=== PATIENT | female | born 1985 | race Two or more races ===

== ENCOUNTER 2017-03-30 02:07 | Emergency (ER) | payer BC ==
[2017-03-30] MEDS ORDERED: LIDOCAINE 1% INJ-PF (10 MG/ML) 30 ML SDV INJ ONE (02:38)
[2017-03-30] MEDS ORDERED: HYDROCODONE/ACETAMINOPHEN 5-325 MG TABLET PO ONE (02:38)
[2017-03-30] MEDS ORDERED: AMOXICILLIN TR/POT CLAVULANATE 500-125 MG TAB PO ONE (02:38)
[2017-03-30] MEDS ORDERED: DIPH/PERTUSS(ACELL)/TETANUS VAC/PF 0.5 ML SYR (>=10YO) IM ONE (02:39)
--- NOTE | 2017-03-30 02:43 | ER Document Report ---
ED General - General Chief Complaint: Dog bite to R eyebrow Stated Complaint: FACIAL INJURY Time Seen by Provider: 03/30/17 02:23 Mode of Arrival: Ambulatory Information source: Patient Notes: 31 yr old female presents with concerns for dog bite of the right eye brow by her dog just prior to arrival. Dog was sleeping and patient movved him out of the bed and he bit her. pt denies any other concerns TRAVEL OUTSIDE OF THE [place] IN LAST 30 DAYS: No - HPI Onset: Just prior to arrival Onset/Duration: Sudden Quality of pain: Achy Severity: Mild Pain Level: 1 Associated symptoms: Headache Exacerbated by: Denies Relieved by: Denies Similar symptoms previously: No Recently seen / treated by doctor: No - Related Data Allergies/Adverse Reactions: rizatriptan benzoate [From Maxalt] Allergy (Unknown, Verified 05/04/13 15:11) Past Medical History - Social History Smoking Status: Never Smoker Cigarette use (# per day): No Chew tobacco use (# tins/day): No Smoking Education Provided: No Family History: Reviewed & Not Pertinent - Past Medical History Cardiac Medical History: Denies: Hx Coronary Artery Disease, Hx Heart Attack, Hx Hypertension Pulmonary Medical History: Denies: Hx Asthma, Hx Bronchitis, Hx COPD, Hx Pneumonia Neurological Medical History: Denies: Hx Cerebrovascular Accident Renal/ Medical History: Denies: Hx Peritoneal Dialysis Musculoskeltal Medical History: Denies Hx Arthritis - Immunizations Hx Diphtheria, Pertussis, Tetanus Vaccination: Yes Review of Systems - Review of Systems Notes: REVIEW OF SYSTEMS: CONSTITUTIONAL : Denies fever, chills, or sweats. Denies recent illness. EENT: Denies eye, ear, throat, or mouth pain or symptoms. Denies nasal or sinus congestion or discharge. Denies throat, tongue, or mouth swelling or difficulty swallowing. CARDIOVASCULAR: Denies chest pain. Denies palpitations or racing or irregular heart beat. Denies ankle edema. RESPIRATORY: Denies cough, cold, or chest congestion. Denies shortness of breath, difficulty breathing, or wheezing. GASTROINTESTINAL: Denies abdominal pain or distention. Denies nausea, vomiting , or diarrhea. Denies blood in vomitus, stools, or per rectum. Denies black, tarry stools. Denies constipation. GENITOURINARY: Denies difficulty urinating, painful urination, burning, frequency, blood in urine, or discharge. FEMALE GENITOURINARY: Denies vaginal bleeding, heavy or abnormal periods, irregular periods. Denies vaginal discharge or odor. MUSCULOSKELETAL: Denies back or neck pain or stiffness. Denies joint pain or swelling. SKIN: dog bite ot face HEMATOLOGIC : Denies easy bruising or bleeding. LYMPHATIC: Denies swollen, enlarged glands. NEUROLOGICAL: admits ot head ache PSYCHIATRIC: Denies anxiety or stress. Denies depression, suicidal ideation, or homicidal ideation. ALL OTHER SYSTEMS REVIEWED AND NEGATIVE. PHYSICAL EXAMINATION: GENERAL: Well-appearing, well-nourished and in no acute distress. HEAD: Atraumatic, normocephalic. EYES: Pupils equal round and reactive to light, extraocular movements intact, conjunctiva are normal. ENT: Nares patent, oropharynx clear without exudates. Moist mucous membranes. NECK: Normal range of motion, supple without lymphadenopathy LUNGS: Breath sounds clear to auscultation bilaterally and equal. No wheezes rales or rhonchi. HEART: Regular rate and rhythm without murmurs ABDOMEN: Soft, nontender, nondistended abdomen. No guarding, no rebound. No masses appreciated. Female : deferred Musculoskeletal: Normal range of motion, no pitting or edema. No cyanosis. NEUROLOGICAL: Cranial nerves grossly intact. Normal speech, normal gait. Normal sensory, motor exams PSYCH: Normal mood, normal affect. SKIN: complete loss of skin of the mid eyebrow in a jagged area maesuring 3x3cm Dictation was performed using [employer] voice recognition software Physical Exam - Vital signs Vitals: Temp Pulse Resp BP Pulse Ox 98.0 F 70 16 144/86 H 99 03/30/17 02:16 03/30/17 02:16 03/30/17 02:16 03/30/17 02:16 03/30/17 02:16 Course - Re-evaluation Re-evalutation: 03/30/17 02:42 unfortunately the area was bitten off completely. I explained ot the patient that with the loss of the skin her eyebrow will probably never grow back right . Area will be cleansed, i will close it loosely to assist with healing. pt will be given tetanus and antibiotic 03/30/17 03:41 3 sutures were placed closely approximating the wounds, there is a gap noted family has been made aware of this Patient instructed to return immediately if there is any signs of infection or any other concerns she will be given plastic surgery follow-up After performing a Medical Screening Examination, I estimate there is LOW risk for OPEN FRACTURE, COMPARTMENT SYNDROME, TENDON RUPTURE, ACUTE NEUROVASCULAR INJURY, or RETAINED FOREIGN BODY, thus I consider the discharge disposition reasonable. Also, there is no evidence or peritonitis, sepsis, or toxicity. I have reevaluated this patient multiple times and no significant life threatening changes are noted. The patient and I have discussed the diagnosis and risks, and we agree with discharging home with close follow-up with the understanding that symptoms and presentations can change. We also discussed returning to the Emergency Department immediately if new or worsening symptoms occur. We have discussed the symptoms which are most concerning (e.g., changing or worsening pain, fever, numbness, weakness, cool or painful digits) that necessitate immediate return. - Vital Signs Vital signs: Temp Pulse Resp BP Pulse Ox 98.0 F 70 16 144/86 H 99 03/30/17 02:16 03/30/17 02:16 03/30/17 02:16 03/30/17 02:16 03/30/17 02:16 Procedures - Laceration/Wound Repair Right Upper Face Time completed: 03:43 Wound length (cm): 3 Wound's Depth, Shape: Superficial Laceration pre-procedure: Sterile PPE donned, Sterile drapes applied, Shur- Clens applied Anesthetic type: 1% Lidocaine Volume Anesthetic (mLs): 5 Wound explored: Contaminated, Foreign body removed Irrigated w/ Saline (mLs): 500 Wound Debrided: Extensive Wound Repaired With: Sutures Suture Size/Type: 5:0, Ethilon Number of Sutures: 3 Post-procedure NV exam normal: Yes Complications: No Discharge - Discharge Clinical Impression: Dog bite Qualifiers: Encounter type: initial encounter Qualified Code(s): W54.0XXA - Bitten by dog, initial encounter Condition: Stable Disposition: HOME, SELF-CARE Instructions: Animal Bites ([facility]) Prescriptions: Amox Tr/Potassium Clavulanate [Augmentin 875-125 Tablet] 1 tab PO BID 10 Days Forms: Return to Work Referrals: PABLO BEGUM MD [ACTIVE STAFF] - Follow up tomorrow
[2017-03-30 04:00] VITALS: BP 140/90
== END 2017-03-30 03:58 | disposition home or self-care (01) ==
LOC: ER 02:07
PROC: 0HQ1XZZ Repair Face Skin, External Approach (ICD-10-PCS; principal; 2017-03-30)
DX: S01.151A Open bite of right eyelid and periocular area, initial encounter (principal); W54.0XXA Bitten by dog, initial encounter; Y93.89 Activity, other specified; Y92.003 Bedroom of unspecified non-institutional (private) residence as the place of occurrence of the external cause; Z88.8 Allergy status to other drugs, medicaments and biological substances; R51 Headache; Z23 Encounter for immunization
CPT/HCPCS: 90471; 90715; 99283

== ENCOUNTER 2018-02-25 10:17 | Outpatient (CLI) | payer BC, MEDICAID ==
[2018-02-25 10:48] LABS: APPEARANCE,URINE CLEAR; BILIRUBIN,URINE NEGATIVE (NEGATIVE); COLOR,URINE STRAW; GLUCOSE, URINE NEGATIVE (NEGATIVE); KETONES,URINE NEGATIVE (NEGATIVE); LEUKOCYTE ESTERASE,URINE NEGATIVE (NEGATIVE); NITRITE,URINE NEGATIVE (NEGATIVE); PROTEIN,URINE NEGATIVE (NEGATIVE); URINE SPECIFIC GRAVITY 1.002; UROBILINOGEN,URINE NEGATIVE mg/dL (<2.0)
[2018-02-25 11:06] LABS: URINE AMPHETAMINES SCREEN NEGATIVE; URINE BENZODIAZEPINES SCREEN NEGATIVE; URINE COCAINE SCREEN NEGATIVE; URINE MARIJUANA (THC) SCREEN NEGATIVE; URINE METHADONE SCREEN NEGATIVE; URINE PHENCYCLIDINE SCREEN NEGATIVE
[2018-02-25 11:14] LABS: URINE BARBITURATES SCREEN UNCONFIRMED POSITIVE
[2018-02-25] MEDS ORDERED: HYDROXYZINE PAMOATE 50 MG CAPSULE ONE (11:43)
[2018-02-25] MEDS ORDERED: HYDROXYZINE PAMOATE 50 MG CAPSULE PO ONE (11:50)
== END 2018-02-25 11:48 | disposition home or self-care (01) ==
LOC: LC 10:17
PROVIDERS: ATTEND Obstetrics & Gynecology
PROC: 4A1HXCZ Monitoring of Products of Conception, Cardiac Rate, External Approach (ICD-10-PCS; principal; 2018-02-25)
DX: Z34.92 Encounter for supervision of normal pregnancy, unspecified, second trimester (principal)
CPT/HCPCS: 80307; 81001

== ENCOUNTER 2018-04-19 16:32 | Outpatient (CLI) | payer BC, MEDICAID ==
[2018-04-19 17:56] LABS: APPEARANCE,URINE CLEAR; BILIRUBIN,URINE NEGATIVE (NEGATIVE); COLOR,URINE YELLOW; GLUCOSE, URINE NEGATIVE (NEGATIVE); KETONES,URINE 20 mg/dL (NEGATIVE); LEUKOCYTE ESTERASE,URINE NEGATIVE (NEGATIVE); NITRITE,URINE NEGATIVE (NEGATIVE); PROTEIN,URINE NEGATIVE (NEGATIVE); URINE SPECIFIC GRAVITY 1.012; UROBILINOGEN,URINE NEGATIVE mg/dL (<2.0)
[2018-04-19 18:06] LABS: URINE AMPHETAMINES SCREEN NEGATIVE; URINE BARBITURATES SCREEN NEGATIVE; URINE BENZODIAZEPINES SCREEN NEGATIVE; URINE COCAINE SCREEN NEGATIVE; URINE MARIJUANA (THC) SCREEN NEGATIVE; URINE METHADONE SCREEN NEGATIVE; URINE PHENCYCLIDINE SCREEN NEGATIVE
[2018-04-19 18:10] LABS: UR PRO/CREAT RATIO RESULT 0.2 mg/mg (0.0-0.2); URINE CREATININE 68.9 mg/dL (16-327); URINE PROTEIN 16.7 mg/dL (<12)
[2018-04-19 18:13] LABS: ABSOLUTE EOSINOPHILS # (AUTO) 0.1 10^3/uL (0.0-0.6); ABSOLUTE LYMPHOCYTES (AUTO) 2.2 10^3/uL (0.5-4.7); ABSOLUTE MONOCYTES (AUTO) 1.4 10^3/uL (0.1-1.4); ABSOLUTE NEUT (AUTO) 8.2 10^3/uL (1.7-8.2); BASOPHILS % (AUTO) 0.2 % (0-2); EOSINOPHILS % (AUTO) 0.7 % (0-6); HEMATOCRIT 34.6 % (36.0-47.0); HEMOGLOBIN 11.9 g/dL (12.0-15.5); LYMPHOCYTES % (AUTO) 18.2 % (13-45); MEAN CORPUSCULAR HEMOGLOBIN 31.2 pg (27.0-33.4); MEAN CORPUSCULAR HGB CONC 34.2 g/dL (32.0-36.0); MEAN CORPUSCULAR VOLUME 91 fl (80-97); PLATELET COUNT 198 10^3/uL (150-450); RED BLOOD COUNT 3.79 10^6/uL (3.72-5.28); RED CELL DISTRIBUTION WIDTH 13.2 % (11.5-14.0); SEGMENTED NEUTROPHILS % (AUTO) 68.9 % (42-78); TOTAL CELLS COUNTED % (AUTO) 100 %; WHITE BLOOD COUNT 11.9 10^3/uL (4.0-10.5)
[2018-04-19 18:30] LABS: ALANINE AMINOTRANSFERASE 20 U/L (9-52); ALBUMIN 3.2 g/dL (3.5-5.0); ALKALINE PHOSPHATASE 101 U/L (38-126); ANION GAP 11 (5-19); ASPARTATE AMINO TRANSFERASE 14 U/L (14-36); BILIRUBIN,DIRECT 0.1 mg/dL (0.0-0.4); BILIRUBIN,TOTAL 0.1 mg/dL (0.2-1.3); BLOOD UREA NITROGEN 5 mg/dL (7-20); CALCIUM 9.2 mg/dL (8.4-10.2); CARBON DIOXIDE 22 mmol/L (22-30); CHLORIDE 106 mmol/L (98-107); GLUCOSE 97 mg/dL (75-110); POTASSIUM 3.6 mmol/L (3.6-5.0); SODIUM 138.6 mmol/L (137-145); TOTAL PROTEIN 6.1 g/dL (6.3-8.2); URIC ACID 3.3 mg/dL (2.5-6.2)
== END 2018-04-19 19:06 | disposition home or self-care (01) ==
LOC: LC 16:32
PROVIDERS: ATTEND Obstetrics & Gynecology
PROC: 4A1HXCZ Monitoring of Products of Conception, Cardiac Rate, External Approach (ICD-10-PCS; principal; 2018-04-19)
DX: O13.3 Gestational [pregnancy-induced] hypertension without significant proteinuria, third trimester (principal); Z3A.34 34 weeks gestation of pregnancy
CPT/HCPCS: 36415; 59025; 80053; 80307; 81001; 82570; 83615; 84156; 84550; 85025

== ENCOUNTER 2018-04-20 11:26 | Emergency (ER) | payer BC, MEDICAID ==
--- NOTE | 2018-04-20 11:43 | ER Document Report ---
ED General - General Chief Complaint: Blood Pressure Problem Stated Complaint: DIFFICULTY BREATHING Time Seen by Provider: 04/20/18 11:34 Notes: This is a 32-year-old female patient was brought in by EMS from [place] for evaluation of dizziness. Patient states that she was seen by L&D last night. Was started on a new blood pressure medication for which she does not know the name of. States that she took it for the first time yesterday. Woke up this morning and felt very puffy. States that her lips and face were swollen. 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 Began to feel a little bit dizzy and began to feel panicky. Had some numbness and tingling of her hands and face. Pass out. Denies any chest pain. States that she felt some heaviness on her chest and some mild shortness of breath but no chest pain. TRAVEL OUTSIDE OF THE [place] IN LAST 30 DAYS: No - Related Data Allergies/Adverse Reactions: rizatriptan benzoate [From Bellabeat] Allergy (Unknown, Verified 04/19/18 16:58) lisinopril Allergy (Verified 04/19/18 16:58) Past Medical History - General Information source: Patient - Social History Smoking Status: Smoker,Current Status Unk Cigarette use (# per day): No Frequency of alcohol use: None Drug Abuse: None Lives with: Family Family History: Reviewed & Not Pertinent Patient has suicidal ideation: No Patient has homicidal ideation: No - Past Medical History Cardiac Medical History: Denies: Hx Coronary Artery Disease, Hx Heart Attack, Hx Hypertension Pulmonary Medical History: Denies: Hx Asthma, Hx Bronchitis, Hx COPD, Hx Pneumonia Neurological Medical History: Denies: Hx Cerebrovascular Accident Renal/ Medical History: Denies: Hx Peritoneal Dialysis Musculoskeletal Medical History: Denies Hx Arthritis - Immunizations Hx Diphtheria, Pertussis, Tetanus Vaccination: Yes Review of Systems - Review of Systems Constitutional: denies: Fever, Malaise, Weakness EENT: Mouth swelling, Other - Patient states that her face is swollen. denies: Double vision, Ear pain, Throat pain, Difficulty swallowing Cardiovascular: Palpitations, Dizziness, Lightheaded. denies: Chest pain, Heart racing, Edema Respiratory: Short of breath. denies: Cough, Hurts to breathe, Wheezing Gastrointestinal: denies: Abdominal pain, Diarrhea, Nausea, Vomiting Genitourinary: denies: Dysuria, Discharge, Flank pain, Hematuria Female Genitourinary: . denies: Vaginal discharge, Vaginal bleeding Musculoskeletal: denies: Back pain, Joint swelling, Muscle pain, Muscle stiffness, Neck pain, Leg swelling, Ankle swelling Skin: denies: Dryness, Lesions, Lumps, Rash Hematologic/Lymphatic: denies: Anemia, Blood clots, Easy bleeding, Easy bruising Neurological/Psychological: Numbness. denies: Confusion, Weakness Physical Exam - Vital signs Vitals: Temp Pulse Resp BP Pulse Ox 97.9 F 94 20 144/90 H 100 04/20/18 11:34 04/20/18 11:34 04/20/18 11:34 04/20/18 11:34 04/20/18 11:34 Interpretation: Normal - General General appearance: Appears well, Alert - HEENT Head: Normocephalic, Atraumatic Eyes: Normal Pupils: PERRL Nasal: Normal Mouth/Lips: Normal, Other - Although patient complains of swelling of the lips I find no significant findings consistent with angioedema. Mucous membranes: Normal Pharynx: Normal Neck: Normal - Respiratory Respiratory status: No respiratory distress Chest status: Nontender Breath sounds: Normal Chest palpation: Normal - Cardiovascular Rhythm: Regular Heart sounds: Normal auscultation Murmur: No - Abdominal Inspection: Normal Distension: Other - 35 week gravid uterus/abdomen Bowel sounds: Normal Tenderness: Nontender Organomegaly: No organomegaly - Back Back: Normal, Nontender - Extremities General upper extremity: Normal inspection, Nontender, Normal color, Normal ROM , Normal temperature General lower extremity: Normal inspection, Nontender, Normal color, Normal ROM , Normal temperature, Normal weight bearing. No: Edema, Adolfo's sign Arm: Normal Wrist: Normal Hand: Normal - Neurological Neuro grossly intact: Yes Cognition: Normal Orientation: AAOx4 Isa Coma Scale Eye Opening: Spontaneous Isa Coma Scale Verbal: Oriented [place] Coma Scale Motor: Obeys Commands Isa Coma Scale Total: 15 Speech: Normal Motor strength normal: LUE, RUE, LLE, RLE Sensory: Normal - Psychological Associated symptoms: Normal affect, Normal mood - Skin Skin Temperature: Warm Skin Moisture: Dry Skin Color: Normal Course - Re-evaluation Re-evalutation: 04/20/18 12:05 This is a well-appearing female in no acute distress at this time. Patient may be having some anxiety or possible reaction to the medications for which she started on. Will try and track down what that medicine was. Will do EKG reassessment. 04/20/18 13:38 Laboratory 04/20/18 04/20/18 04/20/18 11:53 11:53 11:53 WBC 10.5 RBC 3.79 Hgb 11.9 L Hct 35.2 L MCV 93 MCH 31.5 MCHC 33.9 RDW 12.9 Plt Count 219 Seg Neutrophils % 73.9 Lymphocytes % 15.7 Monocytes % 9.8 Eosinophils % 0.4 Basophils % 0.2 Absolute Neutrophils 7.8 Absolute Lymphocytes 1.7 Absolute Monocytes 1.0 Absolute Eosinophils 0.0 Absolute Basophils 0.0 PT 13.3 INR 0.97 Sodium 140.3 Potassium 3.8 Chloride 106 Carbon Dioxide 25 Anion Gap 9 BUN 4 L Creatinine 0.44 L Est GFR ( Amer) > 60 Est GFR (Non-Af Amer) > 60 Glucose 89 Calcium 9.3 Magnesium 1.6 Total Bilirubin 0.2 Direct Bilirubin 0.2 Neonat Total Bilirubin Not Reportable Neonat Direct Bilirubin Not Reportable Neonat Indirect Bili Not Reportable AST 19 ALT 17 Alkaline Phosphatase 104 Creatine Kinase 67 CK-MB (CK-2) Troponin I Total Protein 6.5 Albumin 3.4 L Urine Color Urine Appearance Urine pH Ur Specific [place] Urine Protein Urine Glucose (UA) Urine Ketones Urine Blood Urine Nitrite Urine Bilirubin Urine Urobilinogen Ur Leukocyte Esterase Urine WBC (Auto) Urine RBC (Auto) U Hyaline Cast (Auto) Urine Bacteria (Auto) Squamous Epi Cells Auto Urine Mucus (Auto) Urine Ascorbic Acid 04/20/18 04/20/18 11:53 11:53 WBC RBC Hgb Hct MCV MCH MCHC RDW Plt Count Seg Neutrophils % Lymphocytes % Monocytes % Eosinophils % Basophils % Absolute Neutrophils Absolute Lymphocytes Absolute Monocytes Absolute Eosinophils Absolute Basophils PT INR Sodium Potassium Chloride Carbon Dioxide Anion Gap BUN Creatinine Est GFR ( Amer) Est GFR (Non-Af Amer) Glucose Calcium Magnesium Total Bilirubin Direct Bilirubin Neonat Total Bilirubin Neonat Direct Bilirubin Neonat Indirect Bili AST ALT Alkaline Phosphatase Creatine Kinase CK-MB (CK-2) 0.87 Troponin I < 0.012 Total Protein Albumin Urine Color STRAW Urine Appearance SLIGHTLY-CLOUDY Urine pH 7.0 Ur Specific [place] 1.003 Urine Protein NEGATIVE Urine Glucose (UA) NEGATIVE Urine Ketones NEGATIVE Urine Blood NEGATIVE Urine Nitrite NEGATIVE Urine Bilirubin NEGATIVE Urine Urobilinogen NEGATIVE Ur Leukocyte Esterase NEGATIVE Urine WBC (Auto) 2 Urine RBC (Auto) 1 U Hyaline Cast (Auto) 1 Urine Bacteria (Auto) 3+ Squamous Epi Cells Auto 9 Urine Mucus (Auto) RARE Urine Ascorbic Acid NEGATIVE 04/20/18 13:38 This is a well-appearing female in no acute distress at this time. Has no lower extremity edema. No cyst significant swelling of her legs. Patient describes feelings of dizziness and then panic attack feelings. Patient was started on nifedipine and took her first dose before she went to bed last night. Patient wakes up very early in the morning. While she was at work she had the symptoms of dizziness and feeling out of her head. Began having feelings like she was going to pass out. Currently she is resting comfortably. Oxygen saturations are 100% on room air. Heart rate is in the 70s and 80s. Denies any chest pain or shortness of breath at this time. At this time I am going to send patient to L&D for recheck. I want her to discuss potentially stopping the nifedipine as this could have been causing some of her symptoms. - Vital Signs Vital signs: Temp Pulse Resp BP Pulse Ox 97.9 F 94 27 H 113/67 100 04/20/18 11:34 04/20/18 11:34 04/20/18 12:45 04/20/18 12:45 04/20/18 12:45 - Laboratory Result Diagrams: 04/20/18 11:53 04/20/18 11:53 Laboratory results interpreted by me: 04/20/18 04/20/18 11:53 11:53 Hgb 11.9 L Hct 35.2 L BUN 4 L Creatinine 0.44 L Albumin 3.4 L - EKG Interpretation by Ks EKG shows normal: Sinus rhythm, [place], Intervals, QRS Complexes, ST-T Waves Discharge - Discharge Clinical Impression: Dizziness, nonspecific Medication reaction Qualifiers: Encounter type: initial encounter Qualified Code(s): T50.905A - Adverse effect of unspecified drugs, medicaments and biological substances, initial encounter Condition: Good Disposition: HOME, SELF-CARE Instructions: Medication Side Effects ([facility]), Dyspnea, Nonspecific ([facility]) Additional Instructions: In the event that you develop any worsening symptoms especially significant shortness of breath or chest pain, leg pain and leg swelling passing out or any other concerning symptoms please return. These proceed to the OB L&D triage desk and be checked as planned. Referrals: ALTAGRACIA DINH MD [Primary Care Provider] - Follow up as needed
[2018-04-20 12:05] LABS: ABSOLUTE LYMPHOCYTES (AUTO) 1.7 10^3/uL (0.5-4.7); ABSOLUTE NEUT (AUTO) 7.8 10^3/uL (1.7-8.2); BASOPHILS % (AUTO) 0.2 % (0-2); EOSINOPHILS % (AUTO) 0.4 % (0-6); HEMATOCRIT 35.2 % (36.0-47.0); HEMOGLOBIN 11.9 g/dL (12.0-15.5); LYMPHOCYTES % (AUTO) 15.7 % (13-45); MEAN CORPUSCULAR HEMOGLOBIN 31.5 pg (27.0-33.4); MEAN CORPUSCULAR HGB CONC 33.9 g/dL (32.0-36.0); MEAN CORPUSCULAR VOLUME 93 fl (80-97); MONOCYTES % (AUTO) 9.8 % (3-13); PLATELET COUNT 219 10^3/uL (150-450); RED BLOOD COUNT 3.79 10^6/uL (3.72-5.28); RED CELL DISTRIBUTION WIDTH 12.9 % (11.5-14.0); SEGMENTED NEUTROPHILS % (AUTO) 73.9 % (42-78); TOTAL CELLS COUNTED % (AUTO) 100 %; WHITE BLOOD COUNT 10.5 10^3/uL (4.0-10.5)
[2018-04-20 12:23] LABS: INTERNATIONAL RATION (INR) 0.97; PROTHROMBIN TIME 13.3 SEC (11.4-15.4)
[2018-04-20 12:25] LABS: ALANINE AMINOTRANSFERASE 17 U/L (9-52); ALBUMIN 3.4 g/dL (3.5-5.0); ALKALINE PHOSPHATASE 104 U/L (38-126); ANION GAP 9 (5-19); ASPARTATE AMINO TRANSFERASE 19 U/L (14-36); BILIRUBIN,DIRECT 0.2 mg/dL (0.0-0.4); BILIRUBIN,TOTAL 0.2 mg/dL (0.2-1.3); BLOOD UREA NITROGEN 4 mg/dL (7-20); CALCIUM 9.3 mg/dL (8.4-10.2); CARBON DIOXIDE 25 mmol/L (22-30); CHLORIDE 106 mmol/L (98-107); CREATINE KINASE 67 U/L (30-135); GLUCOSE 89 mg/dL (75-110); POTASSIUM 3.8 mmol/L (3.6-5.0); SODIUM 140.3 mmol/L (137-145); TOTAL PROTEIN 6.5 g/dL (6.3-8.2)
--- NOTE | 2018-04-20 12:27 | EKG REPORT ---
SEVERITY:- BORDERLINE ECG - SINUS RHYTHM PROBABLE LEFT ATRIAL ABNORMALITY BORDERLINE T WAVE ABNORMALITIES POOR R WAVE PROGRESSION ANTERIOR PRECORDIAL LEADS, : Confirmed by: Nicholas Cummings MD 20-Apr-2018 12:26:36
[2018-04-20 12:33] LABS: APPEARANCE,URINE SLIGHTLY-CLOUDY; BILIRUBIN,URINE NEGATIVE (NEGATIVE); GLUCOSE, URINE NEGATIVE (NEGATIVE); KETONES,URINE NEGATIVE (NEGATIVE); LEUKOCYTE ESTERASE,URINE NEGATIVE (NEGATIVE); NITRITE,URINE NEGATIVE (NEGATIVE); PROTEIN,URINE NEGATIVE (NEGATIVE); URINE SPECIFIC GRAVITY 1.003; UROBILINOGEN,URINE NEGATIVE mg/dL (<2.0)
[2018-04-20 12:35] LABS: COLOR,URINE STRAW
[2018-04-20 12:36] LABS: CREATINE KINASE MB 0.87 ng/mL (<4.55)
[2018-04-20 12:37] LABS: TROPONIN I < 0.012 ng/mL
[2018-04-20 13:51] VITALS: BP 114/62
[2018-04-20 13:53] LABS: URINE AMPHETAMINES SCREEN NEGATIVE; URINE BARBITURATES SCREEN UNCONFIRMED POSITIVE; URINE BENZODIAZEPINES SCREEN NEGATIVE; URINE COCAINE SCREEN NEGATIVE; URINE MARIJUANA (THC) SCREEN NEGATIVE; URINE METHADONE SCREEN NEGATIVE; URINE PHENCYCLIDINE SCREEN NEGATIVE
== END 2018-04-20 13:52 | disposition home or self-care (01) ==
LOC: ER 11:26
DX: R42 Dizziness and giddiness (principal); R06.00 Dyspnea, unspecified; R20.0 Anesthesia of skin; T50.905A Adverse effect of unspecified drugs, medicaments and biological substances, initial encounter; X58.XXXA Exposure to other specified factors, initial encounter; F17.200 Nicotine dependence, unspecified, uncomplicated
CPT/HCPCS: 36415; 80053; 80307; 81001; 82550; 82553; 83735; 84484; 85025; 85610; 93005; 93010; 99285

== ENCOUNTER 2018-04-20 14:21 | Outpatient (CLI) | payer BC, MEDICAID ==
--- NOTE | 2018-04-20 16:56 | Non Stress Test Report ---
Non Stress Test Datetime Report Generated by CPN: 04/20/2018 16:56 DEMOGRAPHIC Test Number: 1 EGA NST: 34.6 EGA NST: 34.5 INDICATION Indication for Study: Ordered by Provider Indication for Study: Ordered by Provider Indication for Study (NST) Other: sent from the office VITAL SIGNS Temperature - NST: 98.2 RESP - NST: 18 NBPSYS NST: 117 NBPDIA NST: 66 MONITORING Monitor Explained: Monitor Explained; Test Explained; Patient Verbalized Understanding Monitor Explained: Monitor Explained; Test Explained; Patient Verbalized Understanding Time on Monitor: 04/20/2018 14:00 Time on Monitor: 04/19/2018 16:47 Time off Monitor: 04/20/2018 14:46 Time off Monitor: 04/19/2018 17:25 NST Duration: 46 NST Duration: 38 NST INTERVENTIONS NST Interventions: PO Hydration NST Interventions: PO Hydration; Reposition Patient Physician Notified NST: Díaz Physician Notified NST: Dr May BABY A: [id number] BABY A Movement : Present Movement : Present Contraction Frequency : irritability Contraction Frequency : 0 FHR Baseline : 125 FHR Baseline : 120 Accelerations : 15X15 Accelerations : 15X15 Decelerations : None Decelerations : None Variability : Moderate 6-25bpm Variability : Moderate 6-25bpm NST Review: Meets Criteria for Reactive NST NST Review: Meets Criteria for Reactive NST NST Review and Verified By : Brooklynn Marte RN NST Review and Verified By : Brooklynn Marte RN NST Results: Reactive NST Results: Reactive NST REPORT Report Trigger: Send Report
== END 2018-04-20 15:02 | disposition home or self-care (01) ==
LOC: LC 14:21
PROVIDERS: ATTEND Student in an Organized Health Care Education/Training Program
PROC: 4A1HXCZ Monitoring of Products of Conception, Cardiac Rate, External Approach (ICD-10-PCS; principal; 2018-04-20)
DX: O13.3 Gestational [pregnancy-induced] hypertension without significant proteinuria, third trimester (principal); Z3A.34 34 weeks gestation of pregnancy
CPT/HCPCS: 59025

== ENCOUNTER 2018-05-12 16:59 | Outpatient (CLI) | payer BC, MEDICAID ==
--- NOTE | 2018-05-12 17:47 | Non Stress Test Report ---
Non Stress Test Datetime Report Generated by CPN: 05/12/2018 17:47 DEMOGRAPHIC EGA NST: 38.0 EGA NST: 37.5 INDICATION Indication for Study: Other Indication for Study: Chronic Hypertension VITAL SIGNS Temperature - NST: 98.1 Pulse - NST: 72 RESP - NST: 16 NBPSYS NST: 129 NBPDIA NST: 70 MONITORING Monitor Explained: Monitor Explained; Test Explained; Patient Verbalized Understanding Monitor Explained: Monitor Explained; Test Explained; Patient Verbalized Understanding Time on Monitor: 05/12/2018 17:15 Time on Monitor: 05/10/2018 17:16 Time off Monitor: 05/12/2018 17:41 Time off Monitor: 05/10/2018 18:02 NST Duration: 26 NST Duration: 46 NST INTERVENTIONS NST Interventions: None NST Interventions: PO Hydration; Reposition Patient Physician Notified NST: Dr. Del Angel Physician Notified NST: DR PERDOMO BABY A: [id number] BABY A Movement : Present Movement : Present Contraction Frequency : none Contraction Frequency : NONE FHR Baseline : 125 FHR Baseline : 135 Accelerations : 15X15 Accelerations : 15X15 Decelerations : None Decelerations : None Variability : Moderate 6-25bpm Variability : Moderate 6-25bpm NST Review: Meets Criteria for Reactive NST NST Review: Meets Criteria for Reactive NST NST Review and Verified By : Cal Sarabia RN NST Review and Verified By : Miguel Angel Okeefe RN NST Results: Reactive NST Results: Reactive NST REPORT Report Trigger: Send Report
== END 2018-05-12 17:53 | disposition home or self-care (01) ==
LOC: LC 16:59
PROVIDERS: ATTEND Obstetrics & Gynecology
PROC: 4A1HXCZ Monitoring of Products of Conception, Cardiac Rate, External Approach (ICD-10-PCS; principal; 2018-05-12)
DX: O10.913 Unspecified pre-existing hypertension complicating pregnancy, third trimester (principal); Z3A.38 38 weeks gestation of pregnancy
CPT/HCPCS: 59025

== ENCOUNTER 2018-05-15 22:06 | Inpatient (IN) | payer BC, MEDICAID ==
[2018-05-15 22:30] LABS: APPEARANCE,URINE CLEAR; BILIRUBIN,URINE NEGATIVE (NEGATIVE); COLOR,URINE YELLOW; GLUCOSE, URINE NEGATIVE (NEGATIVE); KETONES,URINE NEGATIVE (NEGATIVE); LEUKOCYTE ESTERASE,URINE NEGATIVE (NEGATIVE); NITRITE,URINE NEGATIVE (NEGATIVE); PROTEIN,URINE NEGATIVE (NEGATIVE); URINE SPECIFIC GRAVITY 1.009; UROBILINOGEN,URINE NEGATIVE mg/dL (<2.0)
[2018-05-15] MEDS ORDERED: DINOPROSTONE 10 MG VAGINAL INSERT.SR PV PRN (22:38)
[2018-05-15 22:49] LABS: URINE AMPHETAMINES SCREEN NEGATIVE; URINE BENZODIAZEPINES SCREEN NEGATIVE; URINE COCAINE SCREEN NEGATIVE; URINE MARIJUANA (THC) SCREEN NEGATIVE; URINE METHADONE SCREEN NEGATIVE; URINE PHENCYCLIDINE SCREEN NEGATIVE
[2018-05-15 22:50] LABS: UR PRO/CREAT RATIO RESULT 0.2 mg/mg (0.0-0.2); URINE CREATININE 59.1 mg/dL (16-327); URINE PROTEIN 13.4 mg/dL (<12)
[2018-05-15 22:52] LABS: ABSOLUTE EOSINOPHILS # (AUTO) 0.1 10^3/uL (0.0-0.6); ABSOLUTE LYMPHOCYTES (AUTO) 2.5 10^3/uL (0.5-4.7); ABSOLUTE MONOCYTES (AUTO) 1.4 10^3/uL (0.1-1.4); ABSOLUTE NEUT (AUTO) 7.2 10^3/uL (1.7-8.2); BASOPHILS % (AUTO) 0.2 % (0-2); HEMATOCRIT 33.7 % (36.0-47.0); HEMOGLOBIN 11.5 g/dL (12.0-15.5); LYMPHOCYTES % (AUTO) 22.3 % (13-45); MEAN CORPUSCULAR HEMOGLOBIN 31.4 pg (27.0-33.4); MEAN CORPUSCULAR VOLUME 93 fl (80-97); MONOCYTES % (AUTO) 12.8 % (3-13); PLATELET COUNT 225 10^3/uL (150-450); RED BLOOD COUNT 3.65 10^6/uL (3.72-5.28); RED CELL DISTRIBUTION WIDTH 13.6 % (11.5-14.0); SEGMENTED NEUTROPHILS % (AUTO) 63.7 % (42-78); TOTAL CELLS COUNTED % (AUTO) 100 %; WHITE BLOOD COUNT 11.3 10^3/uL (4.0-10.5)
[2018-05-15 22:59] LABS: URINE BARBITURATES SCREEN UNCONFIRMED POSITIVE
[2018-05-15] MEDS ORDERED: RINGERS SOLUTION,LACTATED 300 ML IV ONE (23:00)
[2018-05-15] MEDS: RINGERS SOLUTION,LACTATED 1,000 ML IV PRN (23:39)
[2018-05-15 23:40] LABS: ALANINE AMINOTRANSFERASE 30 U/L (9-52); ALBUMIN 3.3 g/dL (3.5-5.0); ALKALINE PHOSPHATASE 127 U/L (38-126); ANION GAP 8 (5-19); ASPARTATE AMINO TRANSFERASE 23 U/L (14-36); BILIRUBIN,DIRECT 0.2 mg/dL (0.0-0.4); BILIRUBIN,TOTAL 0.2 mg/dL (0.2-1.3); BLOOD UREA NITROGEN 6 mg/dL (7-20); CALCIUM 9.3 mg/dL (8.4-10.2); CARBON DIOXIDE 21 mmol/L (22-30); CHLORIDE 107 mmol/L (98-107); GLUCOSE 81 mg/dL (75-110); POTASSIUM 4.2 mmol/L (3.6-5.0); SODIUM 136.4 mmol/L (137-145); TOTAL PROTEIN 6.4 g/dL (6.3-8.2); URIC ACID 4.2 mg/dL (2.5-6.2)
--- NOTE | 2018-05-15 23:41 | Admission Physical ---
Datetime Report Generated by CPN: 05/15/2018 23:41 CURRENT ADMISSION Chief Complaint: Scheduled Induction of Labor Indication for Induction: Chronic Secondary HTN (Specify Cause) Admit Impression : Induction of Labor Admit Plan: Admit to Unit; Initiate Labor Induction Protocol ALLERGIES Medication Allergies: Yes Medication Allergies: rizatriptan benzoate (05/10/2018); lisinopril (05/10/2018); nifedipine (05/10/2018) Latex: No Latex Allergies Food Allergies: None Environmental Allergies: none OBSTETRICAL HISTORY EDC: 05/26/2018 00:00 : 3 Para: 0 Term: 0 : 0 SAB: 1 IAB: 1 Ectopic: 0 Livin Cesareans: 0 VBACs: 0 Multiple Births: 0 Gestational Diabetes: No Rh Sensitization: No Incompetent Cervix: No STEPHANIE: No Infertility: No ART Treatment: No Uterine Anomaly: No IUGR: No Hx Previous C/S: No Macrosomia: No Hx Loss/Stillborn: No PIH: No Hx : No Placenta Previa/Abruption: No Depression/PP Depression: No PTL/PROM: No Post Hemorrhage: No Current Procedures: Ultrasound Obstetrical History Comments: G1 - SAB g3- SAB G2 - current pregnacy - Hx HSV, 2 outbreaks in , takes Valtrex for outbreaks, chronic HTN SEE RECORDS Alcohol: No Marijuana : No Cocaine: No Other Illicit Drugs: No Cigarettes: Never Smoker. 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 Surgery: No Heart Disease: No Hosp/Surgery: No Autoimmune Disorder: No Anesthetic Complications: No Kidney Disease: No Abnormal Pap Smear: No Neuro/Epilepsy: Yes Psychiatric Disorders: No Other Medical Diseases: No Hepatitis/Liver Disease: No Significant Family History: No Varicosities/Phlebitis: No Trauma/Violence : No Thyroid Dysfunction: No Medical History Comments: Chronic HTN - Labetalol BID; Hx of Migraines-Fioricet/[place] INFECTIOUS HISTORY Gonorrhea: No Genital Herpes: Yes Chlamydia: No Tuberculosis: No Syphilis: No Hepatitis: No HIV/AIDS Exposure: No Rash or Viral Illness: No HPV: No Infectious History Comments: Hx of HSV - reports 2 outbreaks in , takes Valtrex for outbreaks PHYSICAL EXAM General: Normal HEENT: Normal Neurologic: Normal Thyroid: Normal Heart: Normal Lungs: Normal Breast: Normal Back: Normal Abdomen: Normal Genitourinary Exam: Normal Extremities: Normal Pelvic Type: Adequate Vital Signs: Reviewed VAGINAL EXAM Dilatation: fingertip Effacement: 50% Station: -3 FETUS A EGA: 38.3 Monitoring: External US FHR- Baseline: 120s Decelerations: None Presentation: Vertex Admit Comment: Cervidil placed at approx 2340 PLANS FOR LABOR AND DELIVERY Labor and Delivery: Plan Pain Management: Epidural Feeding Preference: Breast Benefit of Breast Feed Discussed: Yes Circumcision: N/A INFORMED CONSENT Signature: with User ID: [email or web address]
[2018-05-16] MEDS: RINGERS SOLUTION,LACTATED 1,000 ML IV PRN (08:03)
[2018-05-16] MEDS ORDERED: NORMAL SALINE 1000 ML 1,000 ML IV ONE (09:38)
[2018-05-16] MEDS ORDERED: OXYTOCIN/NORMAL SALINE 20 UNIT/1,000 ML RTUINJ IV PRN (13:22)
[2018-05-16] MEDS ORDERED: RINGERS SOLUTION,LACTATED 1,000 ML IV PRN (13:22)
[2018-05-16] MEDS ORDERED: OXYTOCIN/NORMAL SALINE 20 UNIT/1,000 ML RTUINJ ONE (13:31)
[2018-05-16] MEDS ORDERED: MISOPROSTOL 0.2 MG TABLET PV ONE (14:05)
[2018-05-16] MEDS ORDERED: MISOPROSTOL 0.1 MG TABLET ONE (14:12)
[2018-05-16] MEDS ORDERED: BUTALB/ACETAMINOPHEN/CAFFEINE 1 TAB EACH ONE (14:12)
[2018-05-16] MEDS: BUTALB/ACETAMINOPHEN/CAFFEINE 1 TAB EACH PO PRN (14:17)
[2018-05-16] MEDS ORDERED: MISOPROSTOL 0.1 MG TABLET PV ONE (14:23)
--- NOTE | 2018-05-16 15:30 | L&D Progress Notes ---
PROGRESS NOTES Datetime Report Generated by CPN: 05/16/2018 15:30 PROGRESS NOTE Impression Other: recheck cx after cervidil Procedures- Other: attempted cook placement Plan Other: cytotec Vital Signs : Reviewed Comment: speculum exam negative for hsv lesions, pt states she has beed taking valtrex and denies prodromal sx. attempted cook placement unsuccessful. discussed with ramonita feldmantejovita placed at 1427. VAGINAL EXAM Dilatation: ft Dilatation: fingertip Effacement: 50 Effacement: 50% Station: -3 Station: -3 Contractions: irreg FETUS A FHR - Baseline: 145 Monitoring: External US Variability: Moderate 6-25bpm : 38+4 : 38.1 Presentation: Vertex SIGNATURE SIGNATURE: [id number];14,[id number];13,[id number] SIGNATURE: [id number];,[id number] SIGNATURE: ,[id number] SIGNATURE: [id number] Assignment: Sharon Díaz MD Signature: with User ID: [email or web address] : with User ID: [email or web address]
[2018-05-16] MEDS: MISOPROSTOL 0.1 MG TABLET PV SCH (15:54)
[2018-05-16] MEDS ORDERED: TERBUTALINE SULFATE INJ/PF 1 MG/1 ML SDV ONE (18:51)
--- NOTE | 2018-05-16 19:40 | L&D Progress Notes ---
PROGRESS NOTES Datetime Report Generated by CPN: 05/16/2018 19:39 PROGRESS NOTE Impression: Normal Progression of Labor Procedures: Sterile Vag Exam Plan: Continue Present Management; Tocolysis Informed Consent Obtained: Vaginal Delivery; Risks, Benefits and Alternatives Discussed Comment: IOL for CHTN. Cvx 1/50/hi. Pt has been having increased pain over the last hour. Cervidil last evening then cervidil out at [facility]. then cytotec placed per vagina 25mcg due to closed cervix after cervidil. Now cvx 1/50/hi and plan a cooks and pitocin. terb given for variables due to tachysystole FETUS A FHR - Baseline: 150 FETUS C SIGNATURE: [id number];14,[id number];10,[id number] Signature: with User ID: [email or web address]
[2018-05-16] MEDS ORDERED: BUPIVACAINE HCL 0.5 % INJ/PF 30 ML SDV ONE (20:01)
[2018-05-16] MEDS ORDERED: EPHEDRINE SULFATE INJ 50 MG/1 ML AMPULE ONE (20:02)
[2018-05-16] MEDS ORDERED: FENTANYL/BUPIVACAINE/NS/PF 300 MCG/150 ML RTUINJ EPI ONE (20:02)
--- NOTE | 2018-05-16 22:20 | L&D Progress Notes ---
PROGRESS NOTES Datetime Report Generated by EVI: 05/16/2018 22:20 Impression: Normal Progression of Labor Procedures: Sterile Vag Exam Informed Consent Obtained: Vaginal Delivery; Induction of Labor; Risks, Benefits and Alternatives Discussed Comment: Cooks catheter placed. Will hold pitocin for now. Reviewed positioning etc for positioning and recussitation and will start pitocin when baby settles after epiudral. FHR - Baseline: 145 Monitoring: External US Decelerations: Variable FHR Category: Category II Signature: with User ID: [email or web address]
[2018-05-16] MEDS ORDERED: ZOLPIDEM TARTRATE 5 MG TABLET ONE (23:42)
[2018-05-17] MEDS ORDERED: PENICILLIN G-K 5 MILLION UNIT VIAL ONE ×3 (00:29→08:30)
[2018-05-17] MEDS ORDERED: PENICILLIN G-K 5 MILLION UNIT VIAL IV ONE (00:40)
[2018-05-17] MEDS ORDERED: ONDANSETRON HCL INJ/PF 4 MG/2 ML SDV ONE (07:42)
[2018-05-17] MEDS ORDERED: ONDANSETRON HCL INJ/PF 4 MG/2 ML SDV IV ONE (07:43)
[2018-05-17] MEDS ORDERED: SODIUM BICARBONATE 8.4% INJ 50 MEQ/50 ML DISP.SYRIN ONE (08:17)
[2018-05-17] MEDS ORDERED: LIDOCAINE 2%/EPINEPHRINE INJ 20 ML VIAL ONE (08:17)
[2018-05-17] MEDS ORDERED: MISOPROSTOL 0.2 MG TABLET ONE (08:29)
[2018-05-17] MEDS ORDERED: LIDOCAINE 1% INJ-PF (10 MG/ML) 30 ML SDV ONE (08:29)
--- NOTE | 2018-05-17 10:24 | L&D Progress Notes ---
PROGRESS NOTES Datetime Report Generated by CPN: 05/17/2018 10:24 PROGRESS NOTE Impression: Reassuring Heart Rate Plan: Continue Present Management Vital Signs : Reviewed; Within Normal Limits Comment: Remain in hands and knees on birthing ball, uc's q 6 min, moderate variability, + accels, late and variable decelerations, family at BS Will monitor closely FETUS A FHR - Baseline: 120 Monitoring: External US Variability: Moderate 6-25bpm Accelerations: 15X15 Decelerations: Late; Variable FHR Category: Category II FETUS C SIGNATURE: [id number];14,[id number];10,[id number] SIGNATURE: 10,[id number];14,[id number];13,[id number] Assignment: Jasmin May MD Signature: with User ID: [email or web address] : with User ID: [email or web address]
[2018-05-17] MEDS ORDERED: FENTANYL/BUPIVACAINE/NS/PF 300 MCG/150 ML RTUINJ EPI ONE (10:47)
[2018-05-17] MEDS ORDERED: CITRIC ACID/SODIUM CITRATE ORAL SOLN 15 ML UDCUP ONE (11:05)
[2018-05-17] MEDS ORDERED: CEFAZOLIN 2 GM/D5W RTU 2 GM/50 ML RTUPB IV ONE (11:05)
[2018-05-17] MEDS ORDERED: FENTANYL CITRATE INJ/PF 100 MCG/2 ML AMPUL ONE (11:14)
[2018-05-17] MEDS ORDERED: MIDAZOLAM 2 MG/2 ML INJ ONE (11:14)
[2018-05-17] MEDS ORDERED: EPHEDRINE SULFATE INJ 50 MG/1 ML AMPULE ONE (11:14)
[2018-05-17] MEDS ORDERED: OXYTOCIN 10 UNIT/ML VIAL ONE (11:14)
[2018-05-17] MEDS ORDERED: PROPOFOL INJ 200 MG/20 ML VIAL IV ONE (11:14)
[2018-05-17] MEDS ORDERED: BUPIVACAINE HCL/DEX-WATER/PF 15 MG/2 ML AMPULE ONE (11:16)
[2018-05-17] MEDS ORDERED: KETAMINE HCL INJ 500 MG/10 ML VIAL ONE (11:50)
[2018-05-17] MEDS ORDERED: LIDOCAINE 2% INJ-PF (20 MG/ML) 10 ML AMPUL ONE (11:50)
[2018-05-17] MEDS ORDERED: MORPHINE SULFATE 10 MG/ML INJ ONE (12:11)
[2018-05-17 12:21] LABS: ARTERIAL BLOOD BASE EXCESS -2.9 mmol/L; ARTERIAL BLOOD H2CO3 1.57 mmol/L (1.05-1.35); ARTERIAL BLOOD HCO3 24.4 mmol/L (20-24); ARTERIAL BLOOD O2 SATURATION 45.7 % (94-98); ARTERIAL BLOOD PH 7.29 (7.35-7.45)
[2018-05-17 12:27] LABS: ARTERIAL BLOOD FIO2 CORD BLOOD; ARTERIAL BLOOD PO2 28.2 mmHg (80-100)
--- NOTE | 2018-05-17 12:38 | Operative Report ---
Operative Report DATE OF SURGERY: 05/17/18 PREOPERATIVE DIAGNOSIS: Inadequate pelvis for vaginal delivery, repetitive late decelerations persistent occiput posterior presentation POSTOPERATIVE DIAGNOSIS: Same OPERATION: Primary via low transverse uterine incision SURGEON: PIO PERDOMO ANESTHESIA: GA TISSUE REMOVED OR ALTERED: Placenta COMPLICATIONS: None ESTIMATED BLOOD LOSS: 250 cc INTRAOPERATIVE FINDINGS: Viable female , normal tubes and ovaries PROCEDURE: Patient was taken to the OR and placed in supine position after her spinal anesthesia. She is prepared and draped in sterile fashion. [place] was placed for drainage of the bladder. Low transverse incision was made and carried down the level of the fascia. The fascial incision was made with knife and extended bilaterally with curved Cortes scissors. The fascia was off the rectus muscles using sharp and blunt dissection. The rectus muscles are in the midline. The peritoneum was entered without incident. Bladder blade was placed in uterine segment was identified. A low transverse incision was made creating a bladder flap. Bladder blade was placed low transverse uterine incision was made with the knife and extended with fingertips. The baby was delivered with some fundal pressure. A vaginal hand was also needed. The baby was occiput posterior. Mouth and nose were suctioned free. The cord is doubly clamped and cut. Baby is passed off to the [employer] in attendance. The placenta was manually extracted with trailing membranes. The uterus was externalized wrapped in a moist lap sponge. Uterine contents wiped free. Uterus was closed with a running locking layer of 0 chromic suture using the second layer to imbricate the first completing a double layer closure of the uterus. The serosa was closed with a running 2-0 chromic stitch. The pelvis was irrigated and suctioned free of fluid the uterus was replaced in the abdomen. The abdominal wall peritoneum was closed with running 2-0 chromic stitch. Fascia was closed with a running 0 Vicryl in 2 segments. Marleny's layer was brought together with 0 plain gut stitch and the skin was closed with running subcuticular 4-0 undyed Vicryl stitch. The wound was dressed mother and baby did well.
[2018-05-17] MEDS ORDERED: RINGERS SOLUTION,LACTATED 1,000 ML IV PRN (12:40)
[2018-05-17] MEDS ORDERED: ACETAMINOPHEN 1,000 MG/100 ML RTUPB IV PRN (12:40)
[2018-05-17] MEDS ORDERED: OXYTOCIN/NORMAL SALINE 20 UNIT/1,000 ML RTUINJ IV PRN (12:40)
[2018-05-17] MEDS ORDERED: DIPH/PERTUSS(ACELL)/TETANUS VAC/PF 0.5 ML SYR (>=10YO) IM PRN (12:40)
[2018-05-17] MEDS ORDERED: ACETAMINOPHEN 325 MG TABLET PO PRN (12:40)
[2018-05-17] MEDS ORDERED: OXYCODONE-ACETAMINOPHEN 5-325 MG TABLET PO PRN (12:40)
[2018-05-17] MEDS ORDERED: HYDROMORPHONE HCL INJ/PF 2 MG/ML AMPULE IV PRN (12:40)
[2018-05-17] MEDS ORDERED: PROMETHAZINE HCL INJ 25 MG/1 ML VIAL IV PRN (12:40)
[2018-05-17] MEDS ORDERED: MEASLES,MUMPS&RUBELLA VACC/PF 0.5 ML VIAL SUBCUT PRN (12:40)
[2018-05-17] MEDS ORDERED: SIMETHICONE 80 MG TAB.CHEW PO PRN (12:40)
[2018-05-17] MEDS ORDERED: MEPERIDINE HCL/PF INJ 25 MG/1 ML DISP.SYRIN ONE (12:51)
[2018-05-17] MEDS ORDERED: ACETAMINOPHEN 1,000 MG/100 ML RTUPB IV ONE (12:59)
[2018-05-17] MEDS ORDERED: HYDRALAZINE HCL INJ/PF 20 MG/1 ML SDV ONE (13:15)
[2018-05-17] MEDS ORDERED: HYDRALAZINE HCL INJ/PF 20 MG/1 ML SDV IV ONE (13:21)
[2018-05-17] MEDS ORDERED: LABETALOL HCL 200 MG TABLET ONE (13:25)
[2018-05-17] MEDS ORDERED: HYDROMORPHONE HCL INJ/PF 2 MG/ML AMPULE ONE (13:49)
[2018-05-17] MEDS: LABETALOL HCL 200 MG TABLET PO SCH ×2 (13:53→22:19)
[2018-05-17] MEDS: MISOPROSTOL 0.1 MG TABLET PV SCH (15:38)
[2018-05-17] MEDS: KETOROLAC TROMETHAMINE INJ/PF 30 MG/1 ML SDV IV SCH ×2 (16:16→22:18)
[2018-05-17] MEDS: DOCUSATE SODIUM 100 MG CAPSULE PO SCH (17:39)
[2018-05-17] MEDS: OXYCODONE-ACETAMINOPHEN 5-325 MG TABLET PO PRN (20:40)
[2018-05-17] MEDS ORDERED: SUCCINYLCHOLINE CHLORIDE INJ 200 MG/10 ML VIAL ONE (21:00)
[2018-05-18] MEDS: KETOROLAC TROMETHAMINE INJ/PF 30 MG/1 ML SDV IV SCH (05:00)
[2018-05-18 07:00] LABS: HEMATOCRIT 30.6 % (36.0-47.0); HEMOGLOBIN 10.4 g/dL (12.0-15.5); MEAN CORPUSCULAR HEMOGLOBIN 31.5 pg (27.0-33.4); MEAN CORPUSCULAR VOLUME 93 fl (80-97); PLATELET COUNT 160 10^3/uL (150-450); RED CELL DISTRIBUTION WIDTH 13.7 % (11.5-14.0)
[2018-05-18] MEDS: OXYCODONE-ACETAMINOPHEN 5-325 MG TABLET PO PRN ×3 (07:27→21:32)
--- NOTE | 2018-05-18 09:13 | PDOC PROGRESS REPORT ---
Subjective Progress Note for:: 05/18/18 Subjective:: Pt states that she feels good; pain controlled. Decreasing lochia. Pt denies CP, SOB, F/C and N/V. She is ambulating and voiding without difficulty. Reason For Visit: /INDUCTION Physical Exam - Physical Exam Vital Signs: Temp Pulse Resp BP Pulse Ox 98.4 F 91 18 127/72 H 98 05/18/18 05:01 05/18/18 05:01 05/18/18 05:01 05/18/18 05:01 05/18/18 05:01 Intake & Output 05/17/18 05/18/18 05/19/18 06:59 06:59 06:59 Intake Total 3000 980 Output Total 900 Balance 3000 80 Weight 87 kg General appearance: PRESENT: no acute distress Respiratory exam: PRESENT: clear to auscultation lisa Cardiovascular exam: PRESENT: RRR GI/Abdominal exam: PRESENT: normal bowel sounds - Incision: C/D/I; no erythema, soft Extremities exam: ABSENT: calf tenderness, clubbing, full ROM, joint swelling, pedal edema, tenderness, +1 edema, +2 edema, other Result Laboratory Results: 05/18/18 06:43 05/15/18 22:38 05/17/18 05/18/18 12:08 06:43 WBC 16.0 H RBC 3.30 L Hgb 10.4 L Hct 30.6 L MCV 93 MCH 31.5 MCHC 34.0 RDW 13.7 Plt Count 160 Carbonic Acid 1.57 H HCO3/H2CO3 Ratio 15:1 ABG pH 7.29 L ABG pCO2 52.0 H ABG pO2 28.2 L* ABG HCO3 24.4 H ABG O2 Saturation 45.7 L ABG Base Excess -2.9 FiO2 CORD BLOOD Assessment & Plan - Diagnosis (1) Postoperative anemia due to acute blood loss Is this a current diagnosis for this admission?: Yes (2) S/P primary low transverse Is this a current diagnosis for this admission?: Yes - Plan Summary Plan Summary: Plan: 1. Contine Post op care 2. Will start FeSO4
[2018-05-18] MEDS: LABETALOL HCL 200 MG TABLET PO SCH ×2 (10:25→21:30)
[2018-05-18] MEDS: FERROUS SULFATE 325 MG TABLET PO SCH (10:25)
[2018-05-18] MEDS: PRENATAL VITAMIN W DHA CAPSULE PO SCH (10:26)
[2018-05-18] MEDS: DOCUSATE SODIUM 100 MG CAPSULE PO SCH ×2 (10:26→17:28)
[2018-05-18] MEDS: IBUPROFEN 800 MG TABLET PO SCH ×2 (17:28→23:27)
[2018-05-19] MEDS: IBUPROFEN 800 MG TABLET PO SCH ×3 (06:42→17:03)
--- NOTE | 2018-05-19 08:51 | PDOC PROGRESS REPORT ---
Subjective Progress Note for:: 05/19/18 Reason For Visit: /INDUCTION Physical Exam - Physical Exam Vital Signs: Temp Pulse Resp BP Pulse Ox 97.7 F 79 20 114/78 98 05/19/18 04:03 05/19/18 04:03 05/19/18 04:03 05/19/18 04:03 05/19/18 04:03 Intake & Output 05/18/18 05/19/18 05/20/18 06:59 06:59 06:59 Intake Total 980 Output Total 900 Balance 80 General appearance: PRESENT: no acute distress Respiratory exam: PRESENT: clear to auscultation lisa Cardiovascular exam: PRESENT: RRR GI/Abdominal exam: PRESENT: normal bowel sounds - Incision: C/D/I; no erythema, soft Extremities exam: ABSENT: calf tenderness, clubbing, full ROM, joint swelling, pedal edema, tenderness, +1 edema, +2 edema, other Result Laboratory Results: 05/18/18 06:43 05/15/18 22:38 Assessment & Plan - Diagnosis (1) Postoperative anemia due to acute blood loss Is this a current diagnosis for this admission?: Yes (2) S/P primary low transverse Is this a current diagnosis for this admission?: Yes - Plan Summary Plan Summary: Plan: 1. POD#2-s/p Primary C/S--doing well surgically 2. Anemia-stable 3. Cont Postop care
[2018-05-19] MEDS: LABETALOL HCL 200 MG TABLET PO SCH (10:00)
[2018-05-19] MEDS: FERROUS SULFATE 325 MG TABLET PO SCH (10:00)
[2018-05-19] MEDS: PRENATAL VITAMIN W DHA CAPSULE PO SCH (10:00)
[2018-05-19] MEDS: DOCUSATE SODIUM 100 MG CAPSULE PO SCH ×2 (10:00→17:03)
[2018-05-19] MEDS: BUTALB/ACETAMINOPHEN/CAFFEINE 1 TAB EACH PO PRN (20:12)
[2018-05-20] MEDS: IBUPROFEN 800 MG TABLET PO SCH ×5 (00:32→23:38)
[2018-05-20] MEDS: BUTALB/ACETAMINOPHEN/CAFFEINE 1 TAB EACH PO PRN (04:47)
--- NOTE | 2018-05-20 08:39 | PDOC PROGRESS REPORT ---
Subjective Progress Note for:: 05/20/18 Reason For Visit: /INDUCTION Physical Exam - Physical Exam Vital Signs: Temp Pulse Resp BP Pulse Ox 98.2 F 83 17 136/75 H 99 05/20/18 04:24 05/20/18 04:24 05/20/18 04:24 05/20/18 04:24 05/20/18 04:24 General appearance: PRESENT: no acute distress Respiratory exam: PRESENT: clear to auscultation lisa Cardiovascular exam: PRESENT: RRR GI/Abdominal exam: PRESENT: normal bowel sounds - Incision: C/D/I; no erythema ; appropriated tenderness, soft Extremities exam: ABSENT: calf tenderness, clubbing, full ROM, joint swelling, pedal edema, tenderness, +1 edema, +2 edema, other Result Laboratory Results: 05/18/18 06:43 05/15/18 22:38 Assessment & Plan - Diagnosis (1) Postoperative anemia due to acute blood loss Is this a current diagnosis for this admission?: Yes (2) S/P primary low transverse Is this a current diagnosis for this admission?: Yes - Plan Summary Plan Summary: Plan: 1. POD#3-s/p Primary C/S--doing well surgically 2. anemia--stable 3. D/C home today 4. F/U in the office in 1 week for an incision check or sooner if needed\ 5. Rx on chart
[2018-05-20] MEDS ORDERED: HYDROCODONE/ACETAMINOPHEN 5-325 MG (6 TAB/ER DISP) PO PRN (09:02)
[2018-05-20] MEDS: LABETALOL HCL 200 MG TABLET PO SCH ×3 (09:29→23:39)
[2018-05-20] MEDS: DOCUSATE SODIUM 100 MG CAPSULE PO SCH ×2 (09:29→17:27)
[2018-05-20] MEDS: PRENATAL VITAMIN W DHA CAPSULE PO SCH (09:29)
[2018-05-20] MEDS: FERROUS SULFATE 325 MG TABLET PO SCH (09:29)
[2018-05-21] MEDS: IBUPROFEN 800 MG TABLET PO SCH ×2 (05:49→11:42)
--- NOTE | 2018-05-21 09:16 | PDOC PROGRESS REPORT ---
Subjective-OB Progress Note for:: 05/21/18 Subjective: Pt doing well, no concerns. She report light bleeding, reg diet and + flatus. Unable to get home yesterday, baby not discharged. Physical Exam (OB) Vital Signs: Temp Pulse Resp BP Pulse Ox 97.8 F 79 18 145/87 H 100 05/20/18 23:40 05/20/18 23:40 05/20/18 23:40 05/20/18 23:40 05/20/18 23:40 - PIH/Pre-Eclampsia Clonus: Negative Headache: Absent Epigastric Pain: No Visual Changes: No - Dressing Removed: No Incision: Dressing, Well Approximated Closure Type: Sutures - Bilateral Tubal Ligation Dressing Removed: No Site: Dressing - Lochia Lochia Amount: Scant < 10 ml Lochia Color: Rubra/Red - Abdomen Description: Tender, Soft, Flat Hernia Present: No Fundal Description: Firm, Midline Fundal Height: u/u - u/2 Objective-Diagnostic Laboratory: 05/18/18 06:43 05/15/18 22:38 Assessment and Plan(PN) - Assessment and Plan (1) Chronic hypertension affecting Is this a current diagnosis for this admission?: Yes (2) Postoperative anemia due to acute blood loss Is this a current diagnosis for this admission?: Yes (3) S/P primary low transverse Is this a current diagnosis for this admission?: Yes - Time Spent with Patient Time with patient: Less than 15 minutes Smoking Education Provided: Over 3 minutes Medications reviewed and adjusted accordingly: Yes - Disposition Anticipated Discharge: Home Within: within 24 hours
[2018-05-21] MEDS: PRENATAL VITAMIN W DHA CAPSULE PO SCH (10:15)
[2018-05-21] MEDS: DOCUSATE SODIUM 100 MG CAPSULE PO SCH (10:15)
[2018-05-21] MEDS: FERROUS SULFATE 325 MG TABLET PO SCH (10:15)
[2018-05-21] MEDS: LABETALOL HCL 200 MG TABLET PO SCH (10:22)
[2018-05-21 10:23] VITALS: BP 141/80
== END 2018-05-21 13:15 | disposition home or self-care (01) | DRG 765 ==
LOC: LR 22:06 → 2S 05-17 15:01
PROVIDERS: ADMIT Obstetrics & Gynecology; ATTEND Obstetrics & Gynecology
PROC: 10D00Z1 Extraction of Products of Conception, Low, Open Approach (ICD-10-PCS; principal; 2018-05-17)
PROC: 3E0234Z Introduction of Serum, Toxoid and Vaccine into Muscle, Percutaneous Approach (ICD-10-PCS; 2018-05-21)
DX: O10.42 Pre-existing secondary hypertension complicating childbirth (principal); D62 Acute posthemorrhagic anemia; O76 Abnormality in fetal heart rate and rhythm complicating labor and delivery; O65.5 Obstructed labor due to abnormality of maternal pelvic organs; O99.824 Streptococcus B carrier state complicating childbirth; O90.81 Anemia of the puerperium; Z37.0 Single live birth; Z3A.38 38 weeks gestation of pregnancy; Z86.19 Personal history of other infectious and parasitic diseases; Z23 Encounter for immunization
CPT/HCPCS: 1961; 36415; 80053; 80307; 81005; 82570; 82803; 83615; 84156; 84550; 85025; 85027; 86592; 86850; 86900; 86901; 90715; 94760; 94799; C1726; J0131; J0330; J0360; J0690; J1170; J1885; J2175; J2250; J2270; J2405; J2540; J2590; J2704; J3010; J3105; J3490

== ENCOUNTER 2018-06-27 05:50 | Day surgery (SDC) | payer BC, MEDICAID ==
[2018-06-19 10:56] LABS: HEMATOCRIT 37.6 % (36.0-47.0); HEMOGLOBIN 12.8 g/dL (12.0-15.5); MEAN CORPUSCULAR HEMOGLOBIN 31.1 pg (27.0-33.4); MEAN CORPUSCULAR HGB CONC 34.1 g/dL (32.0-36.0); MEAN CORPUSCULAR VOLUME 91 fl (80-97); PLATELET COUNT 285 10^3/uL (150-450); RED BLOOD COUNT 4.12 10^6/uL (3.72-5.28); RED CELL DISTRIBUTION WIDTH 12.8 % (11.5-14.0); WHITE BLOOD COUNT 5.3 10^3/uL (4.0-10.5)
[2018-06-19 10:57] LABS: INTERNATIONAL RATION (INR) 0.95; PROTHROMBIN TIME 13.2 SEC (11.4-15.4)
[2018-06-19 10:58] LABS: PARTIAL THROMBOPLASTIN TIME 29.2 SEC (23.5-35.8)
--- NOTE | 2018-06-19 13:34 | EKG REPORT ---
SEVERITY:- NORMAL ECG - SINUS RHYTHM : Confirmed by: Nicholas Cummings MD 19-Jun-2018 13:33:51
[~2018-06-27 05:50] MED LIST: CEFAZOLIN 1 GM/D5W RTU 1 GM/50 ML RTUPB IV ONE; CEFAZOLIN 1 GM/D5W RTU 1 GM/50 ML RTUPB IV PRN; LACTATED RINGERS 1000 ML IV PRN; LIDOCAINE 0.5% INJ-PF (5 MG/ML) 50 ML SDV SUBCUT PRN
[2018-06-27] MEDS ORDERED: FENTANYL CITRATE INJ/PF 100 MCG/2 ML AMPUL ONE ×2 (06:53→08:30)
[2018-06-27] MEDS ORDERED: PROPOFOL INJ 200 MG/20 ML VIAL IV ONE (06:53)
[2018-06-27] MEDS ORDERED: MIDAZOLAM 2 MG/2 ML INJ ONE ×2 (06:53→08:30)
[2018-06-27] MEDS ORDERED: SODIUM BICARBONATE 8.4% INJ 50 MEQ/50 ML DISP.SYRIN ONE (07:22)
[2018-06-27] MEDS ORDERED: LIDOCAINE 1%/EPINEPHRINE INJ 20 ML VIAL ONE (07:22)
[2018-06-27] MEDS ORDERED: ONDANSETRON HCL INJ/PF 4 MG/2 ML SDV ONE (07:28)
[2018-06-27] MEDS ORDERED: PROMETHAZINE HCL INJ 25 MG/1 ML VIAL IV PRN ×2 (08:52)
[2018-06-27] MEDS ORDERED: OXYCODONE-ACETAMINOPHEN 5-325 MG TABLET PO PRN ×2 (08:52)
[2018-06-27] MEDS ORDERED: FENTANYL CITRATE INJ/PF 100 MCG/2 ML AMPUL IV PRN ×3 (08:52)
[2018-06-27] MEDS ORDERED: MORPHINE SULFATE 10 MG/ML INJ IV PRN (08:52)
[2018-06-27] MEDS ORDERED: MEPERIDINE HCL/PF INJ 25 MG/1 ML DISP.SYRIN IV PRN (08:52)
[2018-06-27] MEDS ORDERED: DIPHENHYDRAMINE HCL 50 MG/ML VIAL IV PRN (08:52)
--- NOTE | 2018-06-27 09:12 | Operative Report ---
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 The patient was placed in a sloppy lateral position. The patient was then prepped with a Betadine scrub and Betadine solution. A timeout was performed. The area for resection was outlined. Injection of 1% lidocaine with epinephrine and bicarbonate was performed for its anesthetic and hemostatic effects. An incision was then made through the skin into the subcutaneous tissue. Dissection was performed [id number] to encounter the mass. Once the mass was encountered a dissection was performed 360 in order to remove the mass Retraction was used to facilitate exposure. Dissection was performed through the subcutaneous fat down to the deep fascia. The dissection was performed in the upper back region. [id number] the mass was dissected free of the surrounding tissue. Throughout the case hemostasis was achieved with the bipolar and the Bovie. Once the mass was completely dissected it was then removed. The area was washed with Betadine and sterile water solution. Hemostasis was confirmed. Closure was then performed using 3-0 Vicryl sutures. Attempts were made to try to close some of the space that remains after the resection of the mass. This was unsuccessful due to too much dimpling of the skin which would leave more of a irregular deformity. Our only option was to close the deep dermis. We attempted to tack this down to the deeper fascia but this was then create for sure a permanent deformity. We decided to leave the pocket and let it scar in and hopefully this will give her the least amount of depression deformity. 3-0 Vicryl was used for deep dermal sutures. A subcuticular stitch was placed using 3-0 PDS. A central support stitch was placed using 3-0 PDS. The wound was cleaned with Betadine prior to the final closure. Tincture of benzoin and Steri-Strips with a light pressure dressing was applied. Patient was then reversed from anesthesia and taken to the [facility] for recovery. The approximate size of the mass was 5.5 cm . This dictation was performed with dragon naturally speaking. If there are any inconsistencies or errors please contact the physician. Subjective: No complaints Objective: Vital signs stable afebrile No bleeding Dressing intact Assessment and plan: Doing well. Elevate the operative site. Resume medications. Take antibiotics for 1 day Follow-up Full instructions were given to the patient and family and they understand Portions of this note may be dictated using [employer] voice recognition software. Occasional variations and spelling and vocabulary could be possible and are unintentional. Additionally, there is a chance that some errors may not be caught or corrected. Please notify the offer of any discrepancies noted or if any statements are unclear.
--- NOTE | 2018-06-27 09:13 | Discharge Summary ---
Discharge Summary (SDC) - Discharge Final Diagnosis: Mass of the left upper back Date of Surgery: 06/27/18 Condition: Good Treatment or Instructions: Leave the top dressing on for 2 days, then removed. Leave the steri-strip tapes on for 5 days, then removal. Then cleaning wound with peroxide and apply Neosporin/bacitracin 3 times per day. Antibiotics for 1 day, then discontinue. Elevate operative area to decrease swelling. Do not strain, or lift heavy objects. Call for excessive bleeding, increased temperature of 101, uncontrolled pain, or excessive nausea or vomiting. You may reach Dr. Rodrigues through his office at [phone]. In the event of an emergency after hours, then contact Dr. Rodrigues through [facility]. Return to the office for a postop check on . The time will be scheduled by the nursing staff of [facility] prior to discharge. Please give the patient a copy of their labs and EKG so they can bring this to their PMD. Thank you Portions of this note may be dictated using [employer] voice recognition software. Occasional variations and spelling and vocabulary could be possible and are unintentional. Additionally, there is a chance that some errors may not be caught or corrected. Please notify the offer of any discrepancies noted or if any statements are unclear. Referrals: PIO PERDOMO MD [Primary Care Provider] - Discharge Diet: As Tolerated Report the Following to Your Physician Immediately: Unusual Bleeding - Do not flex the back. Do not stretch the shoulder blades. Keep area elevated as best as possible.
[2018-06-27 12:02] VITALS: BP 123/88
== END 2018-06-27 10:40 | disposition home or self-care (01) ==
LOC: OROUT 05:50
PROVIDERS: ATTEND Plastic Surgery
DX: D17.1 Benign lipomatous neoplasm of skin and subcutaneous tissue of trunk (principal); I10 Essential (primary) hypertension; G43.909 Migraine, unspecified, not intractable, without status migrainosus; Z79.899 Other long term (current) drug therapy
CPT/HCPCS: 93005; 36415; 84703; 85027; 85610; 85730; 81025; 88304 ×2; 93010; 21933; J2250; J0690; J3010; J3490 ×2; J2405; J2704

== ENCOUNTER → 2020-01-18 | Outpatient (CLI) | payer BC ==
--- NOTE | 2020-01-18 09:28 | RADIOLOGY REPORT (SQ) ---
EXAM DESCRIPTION: MRI HEAD COMBO IMAGES COMPLETED DATE/TIME: 01/18/2020 9:15 am REASON FOR STUDY: CVA (I63.9) I63.9 CEREBRAL INFARCTION, UNSPECIFIED COMPARISON: None. TECHNIQUE: Multiplanar imaging includes noncontrasted T1, T2, FLAIR, diffusion with ADC map and post gadolinium contrast T1 sequences. Images stored on PACS. CONTRAST TYPE AND DOSE: 20 mL Dotarem. RENAL FUNCTION: Not indicated. ACR Type II contrast agent associated with few, if any, unconfounded cases of NSF LIMITATIONS: None. FINDINGS: ANATOMY: No anomalies. Normal vascular flow voids. Pituitary fossa normal. CSF SPACES: Normal in size and contour. No hemorrhage. CEREBRUM: Numerous periventricular and subcortical white matter lesions demonstrating high signal int ensity on STIR sequences. These are oriented perpendicular to the lateral ventricles. Findings are suspicious for multiple sclerosis. Clinical correlation is needed. No focal mass. No abnormal enha ncement. POSTERIOR FOSSA: No signal alteration. No hemorrhage. No edema, masses, or mass effect. Internal sandip tory canals, cerebellopontine angles, mastoids normal. No enhancing lesions. No abnormal enhancement post contrast. DIFFUSION IMAGING: Negative for acute or subacute infarction. ORBITS: No masses. Globes normal. PARANASAL SINUSES: No fluid levels. Mucosa normal. OTHER: No other significant finding. IMPRESSION: Numerous periventricular and subcortical white matter lesions. Configuration suggests m ultiple sclerosis. Clinical correlation is needed. No abnormal enhancement. No acute infarction. EVIDENCE OF ACUTE STROKE: NO. TECHNICAL DOCUMENTATION: JOB ID: [id number] 2010 [employer] All Rights Reserved Reading location - IP/workstation name: [email or web address]
== END ==
LOC: RAD 08:07
PROVIDERS: ATTEND Neurological Surgery
DX: I63.9 Cerebral infarction, unspecified (principal)
CPT/HCPCS: 82565; 70553; A9576